=== PATIENT | female | born 1960 | race Caucasian/White ===

== ENCOUNTER 2017-01-03 12:00 | Emergency (ER) | payer SELFPAY ==
[~2017-01-03] VITALS: Ht 157.5 cm; Wt 90.0 kg
[~2017-01-03 12:00] MED LIST: ALPR-138 PO; CLONIPIN PO; HYDR-2768 PO; HYDR12.56; LEXA10TA PO; MEDR4PAK3 PO; PERC10TA27 PO; PRIN10TA PO
[2017-01-03 12:01] VITALS: BP 180/89; PULSE 68; RESP 20; TEMP 97.8; O2SAT 97
--- NOTE | 2017-01-03 12:07 | PD ---
Physical Exam Time Seen by Provider: 12:05 Narrative 56yo F c/o wound to R buttocks for 3 weeks. Reports nausea w/o vomiting. Denies fever. Patient seen in triage. VS reviewed. Awaiting bed placement. Data Data Last Documented VS Vital Signs Date Time Temp Pulse Resp B/P Pulse Ox O2 Delivery O2 Flow Rate FiO2 01/03/17 12:01 97.8 68 20 180/89 97 Room Air [facility] Supervised Visit with YEMI: Liz Alejandro January 03, 2017 12:07
[2017-01-03 12:10] VITALS: BP 106/73; PULSE 70
[2017-01-03] MEDS ORDERED: DONEPEZIL (12:42)
[2017-01-03] MEDS ORDERED: LISI-515 PO (12:42)
[2017-01-03] MEDS ORDERED: LEXA10TA PO (12:42)
[2017-01-03] MEDS ORDERED: KLON2TAB PO (12:42)
--- NOTE | 2017-01-03 12:42 | PD ---
HPI Chief Complaint: Skin Problem Time Seen by Provider: 12:20 Travel History International Travel<30 days: No Contact w/Intl Traveler<30days: No Traveled to known affect area: No History of Present Illness HPI Patient is a 56-year-old female presenting to the emergency department evaluation of a skin infection to her right buttock. Patient states it's been there for approximately 3 weeks, she thinks it may have started out as a bug bite. She states it's sore when she sits. She reports the pain is a 5 out of 10, and sore. She has had no fevers, chills. PFSH Past Medical History Bipolar Disorder: Yes Cancer: Yes (CERVICAL) Hepatitis: Yes (HEP C, DIAGNOSED APPROX. 2 YEARS AGO) Hypertension: Yes ?: Not : 3 Para: 1 Miscarriage: 2 Dilation and Curettage (D&C): Yes Tubal Ligation: Yes Past Surgical History Gynecologic Surgery: Yes (D&C DUE TO CERVIAL CA) Social History Alcohol Use: No Tobacco Use: Yes (1 PPD) Substance Use: No Allergies-Medications (Allergen,Severity, Reaction): Coded Allergies: No Known Allergies (Verified , 01/03/17) Reported Meds & Prescriptions Reported Meds & Active Scripts Active Reported Lexapro (Escitalopram Oxalate) 10 Mg Tab 10 Mg PO DAILY [Arecept] 0.2 Klonopin (Clonazepam) 2 Mg Tab 2 Mg PO BID Lisinopril 20 Mg Tab 20 Mg PO DAILY [Clonipin] 0.5 Mg PO DAILY Lexapro (Escitalopram Oxalate) 10 Mg Tab 10 Mg PO DAILY Review of Systems Except as stated in HPI: all other systems reviewed are Neg Skin: Positive Lesions Physical Exam Narrative GENERAL: Well-nourished, well-developed patient. SKIN: Focused skin assessment warm/dry. Superficial ulceration to the right mid to upper buttock in a U shaped pattern approximately 1 cm wide and 4 cm long. Scabbing noted, no foul odor or drainage noted. No induration or edema surrounding the ulceration. HEAD: Normocephalic. EYES: No scleral icterus. No injection or drainage. NECK: Supple, trachea midline. No JVD or lymphadenopathy. CARDIOVASCULAR: Regular rate and rhythm without murmurs, gallops, or rubs. RESPIRATORY: Breath sounds equal bilaterally. No accessory muscle use. GASTROINTESTINAL: Abdomen soft, non-tender, nondistended. MUSCULOSKELETAL: No cyanosis, or edema. BACK: Nontender without obvious deformity. No CVA tenderness. Data Data Last Documented VS Vital Signs Date Time Temp Pulse Resp B/P Pulse Ox O2 Delivery O2 Flow Rate FiO2 01/03/17 12:10 70 106/73 01/03/17 12:01 97.8 20 97 Room Air Orders Wound Culture And Gram Stain (01/03/17 12:31) MDM Medical Decision Making Medical Screen Exam Complete: Yes Emergency Medical Condition: Yes Interpretation(s) Vital Signs Date Time Temp Pulse Resp B/P Pulse Ox O2 Delivery O2 Flow Rate FiO2 01/03/17 12:10 70 106/73 01/03/17 12:01 97.8 68 20 180/89 97 Room Air Differential Diagnosis Abscess versus cellulitis versus dermatitis versus impetigo versus shingles Narrative Course Patient is a 56-year-old female presenting to emergency for evaluation of an ulceration to her right buttock. Patient is not exhibiting any signs or symptoms of a systemic infection. Wound is superficial in nature, there is no surrounding edema or erythema. Patient will be started on antibiotics empirically. She is encouraged to keep area clean, dry. She is advised to apply mupirocin ointment and cover with nonocclusive dressing. She was encouraged return to emergency department for any new or worsening symptoms. Patient is requesting to speak with patient assistance. She will be placed in contact with them upon discharge. She verbalized understanding of these instructions. Patient is stable for discharge. Diagnosis Primary Impression: Bacterial skin infection Referrals: [facility] Patient Instructions: Cellulitis (ED), General Instructions Additional Instructions: Apply topical antibiotic ointment twice daily and cover with nonocclusive dressing Complete full course of antibiotics as prescribed Return to emergency department for any new or worsening symptoms Establish care with a primary doctor at the [facility] Med/Other Pt SpecificInfo: Prescription(s) given Scripts Mupirocin Topical 2 % Oint1 Applic TOPICAL BID #1 TUBE Ref 0 Prov:Cathie Rice 01/03/17 Cephalexin 500 Mg Jes385 Mg PO Q12H 10 Days Ref 0 Prov:Cathie Rice 01/03/17 Disposition: 01 DISCHARGE HOME Condition: Stable Cathie Rice January 03, 2017 12:42
[2017-01-03] MEDS ORDERED: CEPH500T PO (12:46)
[2017-01-03] MEDS ORDERED: MUPI2OIN TOPICAL (12:46)
[2017-01-04] MEDS ORDERED: CLON.5 PO (10:35)
== END 2017-01-03 13:04 | disposition home or self-care (01) ==
LOC: NEPK 12:00
DX: L08.9 Local infection of the skin and subcutaneous tissue, unspecified (principal); B95.61 Methicillin susceptible Staphylococcus aureus infection as the cause of diseases classified elsewhere; I10 Essential (primary) hypertension; B19.20 Unspecified viral hepatitis C without hepatic coma; F17.210 Nicotine dependence, cigarettes, uncomplicated
CPT/HCPCS: 86403; 87070; 87107; 87186; 99284

== ENCOUNTER 2017-05-15 18:42 | Emergency (ER) | payer OTHER ==
[~2017-05-15] VITALS: Ht 157.5 cm; Wt 75.0 kg
[~2017-05-15 18:42] MED LIST changes: -ALPR-138 PO; +CEPH500T PO; +CLON.5 PO; -CLONIPIN PO; +DONEPEZIL; -HYDR-2768 PO; -HYDR12.56; +KLON2TAB PO; +LISI-515 PO; -MEDR4PAK3 PO; +MUPI2OIN TOPICAL; -PERC10TA27 PO; -PRIN10TA PO
[2017-05-15 19:06] VITALS: BP 116/80; PULSE 72; RESP 18; TEMP 98.6; O2SAT 94
[2017-05-15] MEDS ORDERED: MILK175C7 PO (20:03)
[2017-05-15] MEDS ORDERED: BUPR1SUB SL (20:03)
[2017-05-15] MEDS ORDERED: BIOTCAP PO (20:03)
[2017-05-15] MEDS ORDERED: CLON0.2T PO (20:03)
[2017-05-15 20:04] LABS: AUTOMATED NEUTROPHIL # 6.4 TH/MM3 (1.8-7.7); BASOPHIL # 0.1 TH/MM3 (0-0.2); EOSINOPHIL # 0.1 TH/MM3 (0-0.4); EOSINOPHIL % 0.7 % (0.0-4.0); HEMATOCRIT 50.5 % (35.0-46.0); HEMO FLAGS DIFF FINAL; LYMPH % 34.1 % (9.0-44.0); LYMPHOCYTE # 3.7 TH/MM3 (1.0-4.8); MEAN CELL VOLUME 97.3 FL (80.0-100.0); MEAN CORPUSCULAR HEMOGLOBIN 33.3 PG (27.0-34.0); MEAN CORPUSCULAR HGB CONC 34.3 % (32.0-36.0); MONO % 5.4 % (0.0-8.0); NEUT % 58.8 % (16.0-70.0); PLATELET COUNT 159 TH/MM3 (150-450); RED BLOOD COUNT 5.19 MIL/MM3 (4.00-5.30); RED CELL DISTRIBUTION WIDTH 13.6 % (11.6-17.2); WHITE BLOOD COUNT 10.9 TH/MM3 (4.0-11.0)
[2017-05-15 20:29] LABS: ANION GAP 10 MEQ/L (5-15); AST (GOT) 55 U/L (15-37); BICARBONATE 24.3 MEQ/L (21.0-32.0); BLOOD UREA NITROGEN 8 MG/DL (7-18); CHLORIDE 102 MEQ/L (98-107); GLOMERULAR FILTRATION RATE 100 ML/MIN (>89); POTASSIUM 3.9 MEQ/L (3.5-5.1); SODIUM (NA) 136 MEQ/L (136-145)
[2017-05-15 20:30] LABS: ALT (GPT) 50 U/L (10-53)
[2017-05-15 20:31] LABS: ALCOHOL 137 MG/DL (0-5)
--- NOTE | 2017-05-15 20:31 | PD ---
HPI Chief Complaint: Psychiatric Symptoms Time Seen by Provider: 20:14 Travel History International Travel<30 days: No Contact w/Intl Traveler<30days: No Traveled to known affect area: No History of Present Illness HPI 57 year old female presents to the emergency department under BA by local police. According to the [place] Act, the patient wants to hang herself. She reports depression, suicidal ideation. Patient states "life is too much". She reports passing of her mother 1 year ago from Dementia and states her stepfather also has dementia. She has history of bipolar disorder, hepatitis C , HTN. She states she called social security who called the police who placed her under a [place] Act. She states she had 1 alcoholic drink today, but states she has 1 drink everyday. She denies any illicit drug use. PFSH Past Medical History Bipolar Disorder: Yes Cancer: Yes (CERVICAL) Hepatitis: Yes (HEP C, DIAGNOSED APPROX. 2 YEARS AGO) Hypertension: Yes : 3 Para: 1 Miscarriage: 2 Dilation and Curettage (D&C): Yes Tubal Ligation: Yes Past Surgical History Gynecologic Surgery: Yes (D&C DUE TO CERVIAL CA) Social History Alcohol Use: No Tobacco Use: Yes (1 PPD) Substance Use: No Allergies-Medications (Allergen,Severity, Reaction): Coded Allergies: No Known Allergies (Verified , 05/15/17) Reported Meds & Prescriptions Reported Meds & Active Scripts Active Reported Clonidine (Clonidine HCl) 0.2 Mg Tab 0.2 Mg PO BID Zubsolv (Buprenorphine-Naloxone) 5.7-1.4 Mg Subl 1 Tab SL DAILY Biotin 5 Mg Cap 5,000 Mcg PO Milk Thistle 175 Mg Cap 1 Tab PO Klonopin (Clonazepam) 0.5 Mg Tab 0.5 Mg PO DAILY Lexapro (Escitalopram Oxalate) 10 Mg Tab 20 Mg PO DAILY [Arecept] 0.2 Lisinopril 20 Mg Tab 20 Mg PO DAILY Review of Systems Except as stated in HPI: all other systems reviewed are Neg Physical Exam Narrative GENERAL: Well-nourished, well-developed female patient, ambulatory. Afebrile. SKIN: Focused skin assessment warm/dry. HEAD: Normocephalic. Atraumatic. EYES: No scleral icterus. No injection or drainage. NECK: Supple, trachea midline. No JVD or lymphadenopathy. CARDIOVASCULAR: Regular rate and rhythm without murmurs, gallops, or rubs. RESPIRATORY: Breath sounds equal bilaterally. No accessory muscle use. Lungs sounds are clear to auscultation. GASTROINTESTINAL: Abdomen soft, non-tender, nondistended. MUSCULOSKELETAL: No cyanosis, or edema. PSYCHIATRIC: No delusional thought processes. No hallucinations. Data Data Last Documented VS Vital Signs Date Time Temp Pulse Resp B/P (MAP) Pulse Ox O2 Delivery O2 Flow Rate FiO2 05/15/17 19:06 98.6 72 18 116/80 (92) 94 Orders Orders Complete Blood Count With Diff (05/15/17 19:14) Comprehensive Metabolic Panel (05/15/17 19:14) Ed Urine Pregnancytest Poc (05/15/17 19:14) Psych Screen (05/15/17 19:14) Drug Screen, Random Urine (05/15/17 19:14) Alcohol (Ethanol) (05/15/17 19:14) Salicylates (Aspirin) (05/15/17 19:14) Tylenol (Acetaminophen) (05/15/17 19:14) Labs Laboratory Tests Test 05/15/17 19:35 05/15/17 19:38 Urine Opiates Screen NEG Urine Barbiturates Screen NEG Urine Amphetamines Screen NEG Urine Benzodiazepines Screen NEG Urine Cocaine Screen NEG Urine Cannabinoids Screen NEG White Blood Count 10.9 TH/MM3 Red Blood Count 5.19 MIL/MM3 Hemoglobin 17.3 GM/DL Hematocrit 50.5 % Mean Corpuscular Volume 97.3 FL Mean Corpuscular Hemoglobin 33.3 PG Mean Corpuscular Hemoglobin Concent 34.3 % Red Cell Distribution Width 13.6 % Platelet Count 159 TH/MM3 Mean Platelet Volume 9.1 FL Neutrophils (%) (Auto) 58.8 % Lymphocytes (%) (Auto) 34.1 % Monocytes (%) (Auto) 5.4 % Eosinophils (%) (Auto) 0.7 % Basophils (%) (Auto) 1.0 % Neutrophils # (Auto) 6.4 TH/MM3 Lymphocytes # (Auto) 3.7 TH/MM3 Monocytes # (Auto) 0.6 TH/MM3 Eosinophils # (Auto) 0.1 TH/MM3 Basophils # (Auto) 0.1 TH/MM3 CBC Comment DIFF FINAL Differential Comment Blood Urea Nitrogen 8 MG/DL Creatinine 0.62 MG/DL Random Glucose 85 MG/DL Total Protein 8.5 GM/DL Albumin 3.8 GM/DL Calcium Level 9.6 MG/DL Alkaline Phosphatase 83 U/L Aspartate Amino Transf (AST/SGOT) 55 U/L Alanine Aminotransferase (ALT/SGPT) 50 U/L Total Bilirubin 0.5 MG/DL Sodium Level 136 MEQ/L Potassium Level 3.9 MEQ/L Chloride Level 102 MEQ/L Carbon Dioxide Level 24.3 MEQ/L Anion Gap 10 MEQ/L Estimat Glomerular Filtration Rate 100 ML/MIN Salicylates Level 5.0 MG/DL Acetaminophen Level LESS THAN 2.0 MCG/ML Ethyl Alcohol Level 137 MG/DL [facility] Medical Decision Making Medical Screen Exam Complete: Yes Emergency Medical Condition: Yes Medical Record Reviewed: Yes Differential Diagnosis depression versus anxiety versus suicidal ideation versus electrolyte abnormality versus bipolar disorder Narrative Course 57-year-old female presents to the emergency Department under [place] act by local police for suicidal ideation. CBC shows no acute abnormality. CMP shows no acute abnormality, AST is slightly elevated at 55. Urine drug screen is negative. Salicylate level is 5.0. Acetaminophen level is less than 2.0. Alcohol level is 137. Patient is medically cleared for psychiatric screening and disposition. Mental health screening discussed with the patient. Psychiatric screen ordered. Diagnosis Primary Impression: Depression with suicidal ideation Condition: Stable Amadou,Ana Rosa ULLOA May 15, 2017 20:31
[2017-05-15 20:32] LABS: ALKALINE PHOSPHATASE 83 U/L (45-117); TOTAL BILIRUBIN ADULT 0.5 MG/DL (0.2-1.0)
[2017-05-15 20:35] LABS: ACETAMINOPHEN LESS THAN 2.0 MCG/ML (10.0-30.0)
[2017-05-15 23:48] VITALS: BP 186/95
[2017-05-16 05:48] VITALS: BP 123/72; PULSE 58; RESP 16; O2SAT 94
[2017-05-16] MEDS ORDERED: cloNIDine HCL 0.2 MG TAB PO ONE (09:45)
[2017-05-16] MEDS ORDERED: LISINOPRIL 10 MG TAB PO ONE (09:45)
[2017-05-16 11:12] VITALS: BP 115/61; PULSE 41; RESP 18; O2SAT 93
[2017-05-16 12:41] VITALS: BP 115/61; PULSE 41; RESP 18; O2SAT 93
--- NOTE | 2017-05-16 12:50 | PD ---
Physical Exam Date Seen by Provider: May 16, 2017 Time Seen by Provider: 12:48 Data Data Last Documented VS Vital Signs Date Time Temp Pulse Resp B/P (MAP) Pulse Ox O2 Delivery O2 Flow Rate FiO2 05/16/17 12:43 05/16/17 12:41 41 18 93 Room Air 05/15/17 19:06 98.6 Orders Orders Complete Blood Count With Diff (05/15/17 19:14) Comprehensive Metabolic Panel (05/15/17 19:14) Ed Urine Pregnancytest Poc (05/15/17 19:14) Psych Screen (05/15/17 19:14) Drug Screen, Random Urine (05/15/17 19:14) Alcohol (Ethanol) (05/15/17 19:14) Salicylates (Aspirin) (05/15/17 19:14) Tylenol (Acetaminophen) (05/15/17 19:14) Diet Regular Basic (05/16/17 Breakfast) Clonidine (Catapres) (05/16/17 09:45) Lisinopril (Prinivil) (05/16/17 09:45) Ed Discharge Order (05/16/17 12:47) Labs Laboratory Tests Test 05/15/17 19:35 05/15/17 19:38 Urine Opiates Screen NEG Urine Barbiturates Screen NEG Urine Amphetamines Screen NEG Urine Benzodiazepines Screen NEG Urine Cocaine Screen NEG Urine Cannabinoids Screen NEG White Blood Count 10.9 TH/MM3 Red Blood Count 5.19 MIL/MM3 Hemoglobin 17.3 GM/DL Hematocrit 50.5 % Mean Corpuscular Volume 97.3 FL Mean Corpuscular Hemoglobin 33.3 PG Mean Corpuscular Hemoglobin Concent 34.3 % Red Cell Distribution Width 13.6 % Platelet Count 159 TH/MM3 Mean Platelet Volume 9.1 FL Neutrophils (%) (Auto) 58.8 % Lymphocytes (%) (Auto) 34.1 % Monocytes (%) (Auto) 5.4 % Eosinophils (%) (Auto) 0.7 % Basophils (%) (Auto) 1.0 % Neutrophils # (Auto) 6.4 TH/MM3 Lymphocytes # (Auto) 3.7 TH/MM3 Monocytes # (Auto) 0.6 TH/MM3 Eosinophils # (Auto) 0.1 TH/MM3 Basophils # (Auto) 0.1 TH/MM3 CBC Comment DIFF FINAL Differential Comment Blood Urea Nitrogen 8 MG/DL Creatinine 0.62 MG/DL Random Glucose 85 MG/DL Total Protein 8.5 GM/DL Albumin 3.8 GM/DL Calcium Level 9.6 MG/DL Alkaline Phosphatase 83 U/L Aspartate Amino Transf (AST/SGOT) 55 U/L Alanine Aminotransferase (ALT/SGPT) 50 U/L Total Bilirubin 0.5 MG/DL Sodium Level 136 MEQ/L Potassium Level 3.9 MEQ/L Chloride Level 102 MEQ/L Carbon Dioxide Level 24.3 MEQ/L Anion Gap 10 MEQ/L Estimat Glomerular Filtration Rate 100 ML/MIN Salicylates Level 5.0 MG/DL Acetaminophen Level LESS THAN 2.0 MCG/ML Ethyl Alcohol Level 137 MG/DL MDM Medical Record Reviewed: Yes Supervised Visit with YEMI: Yes Narrative Course 57-year-old female who previously presented to the emergency room under [place] act initiated by police. She has been seen and evaluated by psychiatrist and [facility] and monitoring. Diagnosis Primary Impression: Depression with suicidal ideation Disposition: DISCHARGE HOME Condition: Stable Micki Zhong May 16, 2017 12:50
== END 2017-05-16 12:50 ==
LOC: NEDAMB 18:42 → NEPJ 05-16 12:50
DX: F32.9 Major depressive disorder, single episode, unspecified (principal); R45.851 Suicidal ideations; I10 Essential (primary) hypertension; F17.200 Nicotine dependence, unspecified, uncomplicated; Z79.899 Other long term (current) drug therapy; Z86.59 Personal history of other mental and behavioral disorders; Z85.41 Personal history of malignant neoplasm of cervix uteri; Z86.19 Personal history of other infectious and parasitic diseases
CPT/HCPCS: 80053; 80307; 84703; 85025; 99284